=== PATIENT | male | born 1940 | race Caucasian/White ===

== ENCOUNTER 2017-02-07 13:56 | Inpatient (IN) | payer MEDICARE ==
[~2017-02-07] VITALS: Ht 182.9 cm; Wt 99.8 kg
[2017-02-07] MEDS ORDERED: ALBUTEROL SULF 2.5 MG/0.5ML(0.5%) NEB SOLN ONE (15:02)
[2017-02-07] MEDS ORDERED: IPRATROPIUM BROM 0.5 MG/2.5ML INH SOL ONE (15:02)
[2017-02-07 15:03] LABS: Basophils # (auto) 0.1 uL; Basophils % (auto) 0.8 % (0.0-2.0); Eosinophils # (auto) 0.1 uL; Eosinophils % (auto) 1.6 % (0.0-7.0); Hematocrit 46.1 % (41.0-53.0); Hemoglobin 15.3 g/dL (13.5-17.5); Lymphocytes # (auto) 1.3 uL; Lymphocytes % (auto) 18.2 % (10.0-50.0); Mean Corpuscular Hemoglobin 27.2 pg (28.0-32.0); Mean Corpuscular Hgb Conc. 33.2 g/dL (32.0-36.0); Mean Corpuscular Volume 81.9 fL (80.0-100.0); Monocytes # (auto) 0.4 uL; Monocytes % (auto) 5.6 % (0.0-12.0); Neutrophils # (auto) 5.2 uL; Neutrophils % (auto) 73.8 % (37.0-80.0); Nucleated Red Blood Cells % 0.1 %; Platelet Count (auto) 138 10^3/uL (140-450); Red Cell Distribution Width 16.4 % (11.6-16.0)
[2017-02-07 15:15] LABS: INR 1.25 (0.9-1.15); Partial Thromboplastin Time 33.4 sec (22.64-33.71); Prothrombin Time 13.7 sec (9.37-12.3)
[2017-02-07] MEDS ORDERED: ALBUTEROL SULF 2.5 MG/0.5ML(0.5%) NEB SOLN NEB ONE (15:15)
[2017-02-07] MEDS ORDERED: IPRATROPIUM BROM 0.5 MG/2.5ML INH SOL NEB ONE (15:15)
[2017-02-07 15:16] LABS: Albumin 3.7 g/dL (3.4-5.0); Anion Gap 9 (5-15); Blood Urea Nitrogen 22 mg/dL (7-18); Carbon Dioxide 22 mmol/L (21-32); Chloride 109 mmol/L (98-107); Glucose 197 mg/dL (74-106); Magnesium 2.5 mg/dL (1.6-2.6); Potassium 4.6 mmol/L (3.5-5.1); Sodium 140 mmol/L (136-145)
[2017-02-07 15:18] LABS: Aspartate Aminotransferase 11 U/L (15-37); BUN/Creatinine Ratio 12.6; GFR African American 49 mL/min; GFR Non-African American 41 mL/min
[2017-02-07 15:22] LABS: Temperature: 22.4 C (20.0-25.0)
[2017-02-07 15:24] LABS: Alkaline Phosphatase 84 U/L (45-117); Bilirubin, Total 1.8 mg/dL (0.2-1.0); Total Protein 7.5 g/dL (6.4-8.2)
[2017-02-07] MEDS ORDERED: DEXTROSE (50%) 50ML SYRG IV SCH (15:30)
[2017-02-07] MEDS ORDERED: SOTA80TA PO (15:44)
[2017-02-07] MEDS ORDERED: PANT40TA2 PO (15:44)
[2017-02-07] MEDS ORDERED: RIV15T PO (15:44)
[2017-02-07] MEDS ORDERED: TEMA30CA PO (15:44)
[2017-02-07] MEDS ORDERED: ATO40T PO (15:44)
[2017-02-07] MEDS: PANTOPRAZOLE 40 MG TAB PO SCH (16:13)
[2017-02-07] MEDS ORDERED: NITROGLYCERIN 0.4 MG SL TAB SL PRN (16:30)
[2017-02-07] MEDS ORDERED: MORPHINE SULF INJ 2 MG/ML SYRINGE 1ML IV PRN (16:30)
[2017-02-07 17:13] LABS: Albumin 3.7 g/dL (3.4-5.0); Bilirubin, Direct 0.5 mg/dL (0-0.2); Bilirubin, Total 1.8 mg/dL (0.2-1.0); Total Protein 7.7 g/dL (6.4-8.2)
[2017-02-07] MEDS ORDERED: SODIUM CHLORIDE 0.9% 1,000 ML IV ONE (17:15)
[2017-02-07] MEDS: ACCU-CHEK COMFORT CURVE STRIP VI SCH ×2 (17:16→22:00)
[2017-02-07] MEDS: InsuLIN REG 1unit/0.01ml Soln (100units/ml) SC SCH ×2 (17:25→22:00)
[2017-02-07] MEDS ORDERED: CARV25TA55 PO (17:30)
[2017-02-07] MEDS ORDERED: CARVEDILOL 12.5 MG TAB PO ONE (18:15)
[2017-02-07 18:49] VITALS: BP 128/88
[2017-02-07] MEDS: RIVAROXABAN 15 MG TAB PO SCH (19:29)
[2017-02-07 22:00] VITALS: BP 116/76
[2017-02-07] MEDS: SOTALOL HCL 80 MG TAB PO SCH (22:00)
[2017-02-07] MEDS: ATORVASTATIN 20 MG TAB PO SCH (22:38)
[2017-02-07] MEDS: TEMAZEPAM 15 MG CAP PO SCH (22:38)
[2017-02-08] VITALS (7 sets, daily range): BP systolic 116–130; BP diastolic 68–79
[2017-02-08] MEDS ORDERED: FUROSEMIDE 20 MG/2 ML VIAL IV ONE
[2017-02-08] MEDS: ALBUTEROL SULF 2.5 MG/0.5ML(0.5%) NEB SOLN NEB SCH ×5 (00:37→21:47)
[2017-02-08] MEDS: ACCU-CHEK COMFORT CURVE STRIP VI SCH ×4 (06:37→21:53)
[2017-02-08] MEDS: InsuLIN REG 1unit/0.01ml Soln (100units/ml) SC SCH ×4 (06:38→21:59)
[2017-02-08] MEDS: SOTALOL HCL 80 MG TAB PO SCH ×3 (10:00→21:53)
[2017-02-08] MEDS: PANTOPRAZOLE 40 MG TAB PO SCH (10:00)
[2017-02-08] MEDS ORDERED: LIDOCAINE 2%HCL (LOCAL ANESTH.) INJ 20ML MDV ONE (11:17)
[2017-02-08] MEDS ORDERED: MIDAZOLAM HCL 1MG/1ML-2 ML VIAL ONE ×2 (11:18→13:09)
[2017-02-08] MEDS ORDERED: fentaNYL CITRATE 100 MCG/2 ML VL ONE ×2 (11:18→13:12)
[2017-02-08] MEDS ORDERED: LIDOCAINE VISCOUS 2% 15ML UD ONE (11:41)
[2017-02-08] MEDS ORDERED: LIDOCAINE VISCOUS 2% 15ML UD PO ONE (14:15)
[2017-02-08] MEDS: RIVAROXABAN 15 MG TAB PO SCH (17:39)
[2017-02-08] MEDS: TEMAZEPAM 15 MG CAP PO SCH (21:52)
[2017-02-08] MEDS: ATORVASTATIN 20 MG TAB PO SCH (21:53)
[2017-02-09] MEDS: ALBUTEROL SULF 2.5 MG/0.5ML(0.5%) NEB SOLN NEB SCH ×3 (04:56→18:04)
[2017-02-09 05:25] VITALS: BP 114/72
[2017-02-09] MEDS: SOTALOL HCL 80 MG TAB PO SCH ×3 (05:53→22:23)
[2017-02-09] MEDS: ACCU-CHEK COMFORT CURVE STRIP VI SCH ×4 (06:36→22:23)
[2017-02-09] MEDS: InsuLIN REG 1unit/0.01ml Soln (100units/ml) SC SCH ×4 (06:37→22:24)
[2017-02-09 07:08] LABS: Basophils # (auto) 0.1 uL; Basophils % (auto) 0.8 % (0.0-2.0); Eosinophils # (auto) 0.1 uL; Eosinophils % (auto) 1.5 % (0.0-7.0); Hematocrit 38.9 % (41.0-53.0); Hemoglobin 12.7 g/dL (13.5-17.5); Lymphocytes # (auto) 1.1 uL; Lymphocytes % (auto) 17.2 % (10.0-50.0); Mean Corpuscular Hemoglobin 26.7 pg (28.0-32.0); Mean Corpuscular Hgb Conc. 32.8 g/dL (32.0-36.0); Mean Corpuscular Volume 81.5 fL (80.0-100.0); Mean Platelet Volume 10.2 fL (7.4-10.4); Monocytes # (auto) 0.5 uL; Monocytes % (auto) 6.9 % (0.0-12.0); Neutrophils # (auto) 4.8 uL; Neutrophils % (auto) 73.6 % (37.0-80.0); Nucleated Red Blood Cells % 0.2 %; Platelet Count (auto) 118 10^3/uL (140-450); Red Cell Distribution Width 16.2 % (11.6-16.0); White Blood Cell 6.5 10^3/uL (4.4-10.8)
[2017-02-09 07:15] LABS: BUN/Creatinine Ratio 16.5; Calcium 8.4 mg/dL (8.5-10.1); Magnesium 2.4 mg/dL (1.6-2.6)
[2017-02-09 09:00] VITALS: BP 127/78
[2017-02-09] MEDS: PANTOPRAZOLE 40 MG TAB PO SCH (09:46)
[2017-02-09 11:14] LABS: Base Excess -3.2 mmol/L (-2.0-2.0); Blood 02Sat 88.7 % (96-100); Blood COHb 0.5 % (0.5-1.5); Blood MetHb 0.3 % (0.0-1.5); HCO3 20.6 mmol/L (22-26.0); HHb 11.2 % (0.0-5.0); MODE RA; PCO2 33.3 mmHg (35.0-45.0); PCO2(T) 31.9 mmHg (35.0-45.0); PO2 59.5 mmHg (80.0-100.0); PO2(T) 55.5 mmHg (80.0-100.0); Room 0296T; Sample Type Arterial; pH 7.409 (7.350-7.450)
[2017-02-09 13:00] VITALS: BP 105/69
[2017-02-09 17:00] VITALS: BP 142/98
[2017-02-09 20:00] VITALS: BP 119/76
[2017-02-09 22:00] VITALS: BP 119/76
[2017-02-09] MEDS: RIVAROXABAN 15 MG TAB PO SCH (22:22)
[2017-02-09] MEDS: TEMAZEPAM 15 MG CAP PO SCH (22:23)
[2017-02-09] MEDS: ATORVASTATIN 20 MG TAB PO SCH (22:23)
[2017-02-10] MEDS: ALBUTEROL SULF 2.5 MG/0.5ML(0.5%) NEB SOLN NEB SCH ×3 (01:23→12:01)
[2017-02-10 04:35] LABS: Potassium 4.1 mmol/L (3.5-5.1)
[2017-02-10 04:39] LABS: BUN/Creatinine Ratio 17.6; Calcium 8.6 mg/dL (8.5-10.1); Magnesium 2.5 mg/dL (1.6-2.6)
[2017-02-10 04:41] LABS: Basophils # (auto) 0 uL; Basophils % (auto) 0.9 % (0.0-2.0); Eosinophils # (auto) 0.1 uL; Eosinophils % (auto) 1.8 % (0.0-7.0); Hematocrit 36.6 % (41.0-53.0); Lymphocytes # (auto) 1.4 uL; Lymphocytes % (auto) 26.1 % (10.0-50.0); Mean Corpuscular Hemoglobin 26.9 pg (28.0-32.0); Mean Corpuscular Hgb Conc. 32.6 g/dL (32.0-36.0); Mean Corpuscular Volume 82.5 fL (80.0-100.0); Mean Platelet Volume 9.9 fL (7.4-10.4); Monocytes # (auto) 0.3 uL; Monocytes % (auto) 6.6 % (0.0-12.0); Neutrophils # (auto) 3.4 uL; Neutrophils % (auto) 64.6 % (37.0-80.0); Nucleated Red Blood Cells % 0.1 %; Platelet Count (auto) 107 10^3/uL (140-450); Red Cell Distribution Width 16.8 % (11.6-16.0); White Blood Cell 5.2 10^3/uL (4.4-10.8)
[2017-02-10 05:00] VITALS: BP 131/70
[2017-02-10] MEDS: InsuLIN REG 1unit/0.01ml Soln (100units/ml) SC SCH ×2 (06:37→11:37)
[2017-02-10] MEDS: SOTALOL HCL 80 MG TAB PO SCH ×2 (06:37→13:23)
[2017-02-10] MEDS: ACCU-CHEK COMFORT CURVE STRIP VI SCH ×2 (06:38→11:27)
[2017-02-10 08:00] VITALS: BP 131/70
[2017-02-10 08:59] VITALS: BP 127/74
[2017-02-10] MEDS: PANTOPRAZOLE 40 MG TAB PO SCH (09:25)
[2017-02-10 11:32] VITALS: BP 127/73
[2017-02-10] MEDS ORDERED: AMOXICILLIN/CLAVUL 875 MG TAB PO ONE (12:30)
[2017-02-10] MEDS ORDERED: DOXYCYCLINE 100 MG TAB/CAP PO ONE (13:00)
[2017-02-10 13:04] VITALS: BP 131/70
[2017-02-10 13:36] VITALS: BP 127/73
== END 2017-02-10 16:34 | disposition home health service (06) | DRG 273 ==
LOC: EDBD 13:56 → ER 13:56 → TELE 13:57 → TELE-WESTW 18:23
PROVIDERS: ADMIT Specialist; ATTEND Specialist
PROC: 4A023FZ Measurement of Cardiac Rhythm, Percutaneous Approach (ICD-10-PCS; principal; 2017-02-09)
PROC: 02583ZZ Destruction of Conduction Mechanism, Percutaneous Approach (ICD-10-PCS; 2017-02-09)
PROC: 4A0234Z Measurement of Cardiac Electrical Activity, Percutaneous Approach (ICD-10-PCS; 2017-02-09)
PROC: 02K83ZZ Map Conduction Mechanism, Percutaneous Approach (ICD-10-PCS; 2017-02-09)
PROC: B246ZZ4 Ultrasonography of Right and Left Heart, Transesophageal (ICD-10-PCS; 2017-02-09)
PROC: 5A2204Z Restoration of Cardiac Rhythm, Single (ICD-10-PCS; 2017-02-09)
PROC: 5A09357 Assistance with Respiratory Ventilation, Less than 24 Consecutive Hours, Continuous Positive Airway Pressure (ICD-10-PCS; 2017-02-09)
DX: I48.92 Unspecified atrial flutter (principal); I50.43 Acute on chronic combined systolic (congestive) and diastolic (congestive) heart failure; N17.9 Acute kidney failure, unspecified; I13.0 Hypertensive heart and chronic kidney disease with heart failure and stage 1 through stage 4 chronic kidney disease, or unspecified chronic kidney disease; I50.40 Unspecified combined systolic (congestive) and diastolic (congestive) heart failure; E11.22 Type 2 diabetes mellitus with diabetic chronic kidney disease; I08.1 Rheumatic disorders of both mitral and tricuspid valves; J20.9 Acute bronchitis, unspecified; I25.10 Atherosclerotic heart disease of native coronary artery without angina pectoris; N18.9 Chronic kidney disease, unspecified; E66.3 Overweight; E78.5 Hyperlipidemia, unspecified; G47.30 Sleep apnea, unspecified; Z86.73 Personal history of transient ischemic attack (TIA), and cerebral infarction without residual deficits; E66.9 Obesity, unspecified; Z95.1 Presence of aortocoronary bypass graft; Z95.0 Presence of cardiac pacemaker; Z86.79 Personal history of other diseases of the circulatory system; Z68.29 Body mass index [BMI] 29.0-29.9, adult
CPT/HCPCS: 36415; 36600; 71010; 80048; 80053; 80076; 82805; 82962; 83036; 83735; 83880; 84443; 84484; 85025; 85610; 85730; 93005; 94640; 94660; 94761; 99152; 99153; J1815; J2250